=== PATIENT | male | born 1980 | race Caucasian/White ===

== ENCOUNTER 2024-07-24 08:26 | Inpatient (IN) | payer MEDICAID ==
[~2024-07-24] VITALS: Ht 177.8 cm; Wt 89.0 kg
[2024-07-24] VITALS (25 sets, daily range): BP systolic 0–157; BP diastolic 32–136; PULSE 20–139; RESP 20–30; O2SAT 27–99
[~2024-07-24 08:26] MED LIST: rocuronium 10mg/ml inj IV ONE
[2024-07-24] MEDS: etomidate 2mg/ml inj. IV ONE (08:44)
[2024-07-24] MEDS: rocuronium 10mg/ml inj IV ONE ×2 (08:45→16:30)
--- NOTE | 2024-07-24 08:45 | NUR ---
patient intubated with 8fr ET tube @ 23 at the teeth.
[2024-07-24] MEDS: propofol 1000mg/100ml bottle 100 ML IV PRN (09:00)
[2024-07-24] MEDS ORDERED: propofol 10mg/ml 20ml vial IV ONE (09:20)
--- NOTE | 2024-07-24 09:29 | NUR ---
TELEPHONE CALL FROM MOTHER, YOUNG BUCK, FOR CONDITION REPORT. CONTACT NUMBER . NURSE WILL CALL BACK WHEN SHE IS ABLE.
[2024-07-24] MEDS: ringers solution, lactated 1000ml IV soln IV ONE (09:34)
[2024-07-24] MEDS ORDERED: fentaNYL/PF 50MCG/1 ML 2ML syringe IV PRN (09:35)
[2024-07-24] MEDS: piperacillin/tazo 3.375gm/50ml 50 ML IV ONE (09:41)
[2024-07-24] MEDS: normal saline 1000ML IV soln IVB ONE (09:42)
[2024-07-24 09:45] LABS: ABG BASE EXCESS 10.3 mmol/L (-2.0-3.0); ABG HCO3 38.6 mmol/L (21.0-28.0); ABG OXYGEN SATURATION 99.6 % (94.0-98.0); ABG PCO2 (T) 75.1 mmHg (35.0-48.0); ABG PH (T) 7.327 (7.350-7.450); ALLEN'S TEST POSITIVE; FCOHb 0.8 % (0.5-1.5); FHHb 0.4 % (0.0-5.0); FMetHb 0.5 % (0.0-1.5); FO2Hb 98.3 % (94.0-98.0); MODE VENT - AC; PATIENT TEMPERATURE 36.6; RESPIRATORY RATE 20 b/min; TIDAL VOLUME 400 mL; TOTAL HEMOGLOBIN 10.3 G/dl (13.5-17.5)
[2024-07-24 10:17] LABS: BASOPHILS % (AUTO) 0.3 % (0-1); EOSINOPHILS % (AUTO) 0.1 % (0-6); HEMATOCRIT 28.6 % (42.0-52.0); HEMOGLOBIN 9.1 g/dl (14.0-17.9); LYMPHOCYTES # (AUTO) 0.3 X10'3 (1.1-4.8); LYMPHOCYTES % (AUTO) 4.3 % (21-51); MEAN CORPUSCULAR HEMOGLOBIN 29.3 PG (27.0-31.0); MEAN CORPUSCULAR HGB CONC 31.8 g/dL (33.0-36.5); MEAN CORPUSCULAR VOLUME 92.1 FL (78-98); MEAN PLATELET VOLUME 6.9 FL (7.4-10.4); MONOCYTES # (AUTO) 0.6 X10'3 (0-0.9); NEUTROPHILS # (AUTO) 5.7 X10'3 (1.8-7.7); NEUTROPHILS % (AUTO) 86.3 % (42-75); PLATELET COUNT 481 X10'3 (140-440); RED CELL DISTRIBUTION WIDTH 16.2 % (11.5-14.5); WHITE BLOOD COUNT 6.6 X10'3 (4.5-11.0)
[2024-07-24 10:22] LABS: ALBUMIN 1.5 G/DL (3.4-5.0); ANION GAP 6 (8-16); BLOOD UREA NITROGEN 15 MG/DL (7-18); BUN/CREATININE RATIO 16.9 (10.0-20.0); CALCIUM 8.4 MG/DL (8.5-10.1); CHLORIDE 102 MMOL/L (99-107); CREATININE 0.89 MG/DL (0.60-1.10); GLUCOSE 160 MG/DL (70-104); MAGNESIUM 1.6 MG/DL (1.5-2.4); POTASSIUM 3.6 MMOL/L (3.5-5.1); SODIUM 146 MMOL/L (135-145); TOTAL CARBON DIOXIDE 38.4 MMOL/L (24-32); eCRCL 111 ML/MIN; eGFR > 90 ML/MIN
--- NOTE | 2024-07-24 10:27 | NUR ---
Left for Ct at 1015 back in room 4 at 1027
[2024-07-24] MEDS: dexamethasone sod phosphate 10mg/ml inj IV STA (10:51)
[2024-07-24] MEDS: vancomycin/NS 1 GM ADD-VANTAGE 250 ML X 1 DOSE IV ONE (10:51)
[2024-07-24] MEDS: FENTANYL-0.9 % NACL/PF 100 ML IV SCH (10:53)
[2024-07-24] MEDS ORDERED: ondansetron/PF 4mg/2ml inj IV PRN (11:05)
[2024-07-24] MEDS ORDERED: acetaminophen 325mg tablet PO PRN ×2 (11:05)
--- NOTE | 2024-07-24 11:10 | NUR ---
Residents at bedside.
[2024-07-24] MEDS: LidoCAINE 2% Topical Jelly 11mL syringe (UROJET) TOP ONE (11:53)
[2024-07-24 12:01] LABS: BILIRUBIN,URINE NEGATIVE (Neg); CLARITY,URINE CLEAR (Clear); COLOR,URINE YELLOW (Yellow); GLUCOSE, URINE NEGATIVE (Neg); KETONES,URINE NEGATIVE (Neg); LEUKOCYTE ESTERASE ,URINE NEGATIVE (Neg); NITRITES, URINE NEGATIVE (Neg); OCCULT BLOOD,URINE TRACE-INTACT (Neg); PROTEIN,URINE TRACE mg/dl (Neg); UROBILINOGEN,URINE 0.2 E.U/dL (0.2-1.0)
[2024-07-24 12:03] LABS: UA COLLECTION TYPE NON-SPECIFIED
[2024-07-24 12:05] LABS: PRO BRAIN NATRIURETIC PEPTIDE 4797 PG/ML (0-125)
[2024-07-24 12:09] LABS: URINE AMPHETAMINE SCREEN NEGATIVE (Neg); URINE BARBITUATE SCREEN NEGATIVE (Neg); URINE BENZODIAZEPINES SCREEN NEGATIVE (Neg); URINE CANNABINOID SCREEN NEGATIVE (Neg); URINE COCAINE SCREEN NEGATIVE (Neg); URINE METHADONE SCREEN POSITIVE (Neg); URINE OPIATE SCREEN NEGATIVE (Neg); URINE PHENCYCLIDINE SCREEN NEGATIVE (Neg)
[2024-07-24 12:16] LABS: BACTERIA,URINE NONE SEEN /HPF (Neg); SQUAMOUS EPITHELIAL CELL,UR FEW /LPF (FEW); WBC,URINE 0-4 /HPF (0-4)
[2024-07-24 12:17] LABS: AMORPHOUS URATES 1+; HYALINE CASTS 0-3 /LPF (NEGATIVE)
[2024-07-24 12:21] LABS: APTT 27 SECONDS (22-32); INR 1.3 INR
[2024-07-24] MEDS: LIDOcaine 4% (40 mg/ml) topical solution 50ml MM ONE (12:55)
[2024-07-24] MEDS: dextrose 5%-1/2 normal saline 1,000 ML IV SCH (13:00)
--- NOTE | 2024-07-24 13:00 | NUR ---
Patient in room CICU 2011. I have received report from ER and had the opportunity to ask questions and assume patient care. PT TO ROOM BY MARILYN
[2024-07-24] MEDS ORDERED: epiNEPHrine 1 MG/ML 1 ml ampule **BRONCH ONLY ONE (13:03)
[2024-07-24] MEDS ORDERED: LIDOCAINE 4% (40MG/ML) topical solution 50ml **BRONCH ONLY ONE (13:04)
--- NOTE | 2024-07-24 13:15 | NUR ---
INCREASED BLDY SXS VIA ETT- rT HERE. DR MEYER NOTIFIED. ROGELIOVAN AT MAX DOSE. INCREASING FENTANYL PER PROTOCOL BY 15 MCG. O ALLOW ADEQUATE VENTILATION
[2024-07-24] MEDS: epiNEPHrine 1 mg/ml inj ONE (13:35)
[2024-07-24] MEDS: racepinephrine 11.25mg/0.5ml nebule IH PRN (13:36)
[2024-07-24] MEDS: epiNEPHrine 1 mg/ml inj IR PRN (13:36)
[2024-07-24] MEDS ORDERED: METH-806 PO (13:49)
[2024-07-24] MEDS ORDERED: METH40VI32 IJ (13:49)
[2024-07-24] MEDS ORDERED: LOP12.5T PO (13:49)
[2024-07-24] MEDS ORDERED: PANT40VI2 IV (13:49)
[2024-07-24] MEDS ORDERED: GABA300C PO (13:49)
--- NOTE | 2024-07-24 14:00 | NUR ---
DR MEYER NOTIFIED OF INCREASED BLDY ETT SX- RT HERE TO ASSIST WITH BRONCH AND EPI INJECTION TO CONTROL BLEEDING. FENT TO 200MCG PER MD ORDER. ECHO AND VASCULAR STUDY DONE LE
[2024-07-24] MEDS: MEROPENEM 1GM/NS 100ML IVPB 100 ML IV SCH (14:06)
[2024-07-24] MEDS ORDERED: ipratropium/albuterol 3ml nebule NEB PRN (14:20)
[2024-07-24] MEDS ORDERED: atropine 0.1mg/ml 10ml syringe ONE (15:00)
--- NOTE | 2024-07-24 15:00 | NUR ---
PT ON 80% NOW- REQUIRING BAGGING BY RT. AWARE- CARDIOVASCULAR SURGEON HERE- CALL BY PA TO DOMI TO SURGEON WHO DID ORIGINAL SURGERY- DECISION TO NOT PLACE CT AT PRESENT- AWAITING ANESTH
[2024-07-24 15:28] LABS: ALANINE AMINOTRANSFERASE 27 U/L (12-78); ALBUMIN 1.3 G/DL (3.4-5.0); ALBUMIN/GLOBULIN RATIO 0.2 (1.1-1.5); ALKALINE PHOSPHATASE 87 IU/L (46-116); ASPARTATE AMINO TRANSFERASE 34 U/L (10-37); BILIRUBIN,DIRECT 0.2 MG/DL (0-0.3); BILIRUBIN,TOTAL 0.7 MG/DL (0.1-1.0); TOTAL PROTEIN 6.6 G/DL (6.4-8.2)
[2024-07-24] MEDS ORDERED: piperacillin/tazo 3.375gm/50ml 50 ML IV SCH (16:00)
[2024-07-24] MEDS: methylPREDNISolone sod succ 125mg/2ml vial IV SCH (16:01)
[2024-07-24] MEDS: pantoprazole 40 MG vial IV SCH (16:02)
[2024-07-24 16:09] LABS: ABG BASE EXCESS 5.8 mmol/L (-2.0-3.0); ABG HCO3 36.5 mmol/L (21.0-28.0); ABG OXYGEN SATURATION 86.3 % (94.0-98.0); ABG PCO2 (T) 99.6 mmHg (35.0-48.0); ABG PH (T) 7.182 (7.350-7.450); ABG PO2 (T) 56.6 mmHg (83.0-108.0); ALLEN'S TEST POSITIVE; FCOHb 0.7 % (0.5-1.5); FHHb 13.6 % (0.0-5.0); FMetHb 0.3 % (0.0-1.5); FO2Hb 85.4 % (94.0-98.0); MODE VENT - P/C; PEEP 12 cm H2O; RESPIRATORY RATE 20 b/min; TIDAL VOLUME 280 mL; TOTAL HEMOGLOBIN 10.3 G/dl (13.5-17.5)
[2024-07-24] MEDS: CISatracurium besylate inj. 100 MG in normal saline 100ml IV soln 90 ML IV PRN (16:18)
--- NOTE | 2024-07-24 16:45 | NUR ---
NIMBEX GTT START- ANESTH HERE- TANESHA BOLUS GIVEN. REINTUBATED WITH DOUBLE ETT WITH TUBE EXCHANGER- NOT IN PLACE- REMOVED REPLACED, BUT HR T- 20'S, SATS TO 27. CODE CALEED- CPR IN PROCESS.
[2024-07-24] MEDS ORDERED: epiNEPHrine 5 MG in NS 250ml IV.SOLN IV SCH (17:05)
[2024-07-24] MEDS: COMMUNICATION ORDER 1 EA MISC MC ONE ×2 (17:15→18:43)
--- NOTE | 2024-07-24 17:15 | NUR ---
AFTER CPR, WITH ASTOLE, VTACH- 2 SHOCKS, PEA AND 4 EPI, 1 ATROPINE-ROSC WITH SAT 81 TO 91, HR 160'S TO 110, SBP 140'S TO 50'S. LEVO STARTED.CL AND AL PLACED PER MD CXR AND ABG NOTED BYMD, ANESTH CALLED.
[2024-07-24] MEDS: NORepinephrine 8mg/ 250ml NS 250 ML IV ONE (17:45)
[2024-07-24 17:48] LABS: ABG BASE EXCESS 3.5 mmol/L (-2.0-3.0); ABG HCO3 36.5 mmol/L (21.0-28.0); ABG OXYGEN SATURATION 87.9 % (94.0-98.0); ABG PCO2 (T) 136.7 mmHg (35.0-48.0); ABG PO2 (T) 67.8 mmHg (83.0-108.0); FCOHb 0.8 % (0.5-1.5); FMetHb 0.3 % (0.0-1.5); FO2Hb 86.9 % (94.0-98.0); MODE VENT - P/C; PATIENT TEMPERATURE 37.8; PEEP 8 cm H2O; RESPIRATORY RATE 30 b/min; TIDAL VOLUME 215 mL; TOTAL HEMOGLOBIN 10.3 G/dl (13.5-17.5)
--- NOTE | 2024-07-24 18:39 | NUR ---
Patient in room CICU 2011. I have received report from Camilla ORNELAS and had the opportunity to ask questions and assume patient care.
--- NOTE | 2024-07-24 19:26 | NUR ---
Dr Paulino at bedside, verified left ET tube placement switched the vent connection with RT from double port to the left ET tube Right ET tube clamped attached to adapter . Per MD-able to use kory in circuit suction to carefully suction secretions, avoid deep suctioning.
[2024-07-24] MEDS: vasopressin inj. 40 UNIT in normal saline 50ml IV soln 38 ML IV SCH (19:30)
[2024-07-24] MEDS: NORepinephrine 8mg/ 250ml NS 250 ML IV SCH (19:33)
[2024-07-24 21:18] LABS: ABG BASE EXCESS 3.2 mmol/L (-2.0-3.0); ABG HCO3 30.2 mmol/L (21.0-28.0); ABG OXYGEN SATURATION 94.3 % (94.0-98.0); ABG PCO2 (T) 61.2 mmHg (35.0-48.0); ABG PH (T) 7.316 (7.350-7.450); ABG PO2 (T) 72.5 mmHg (83.0-108.0); FCOHb 0.8 % (0.5-1.5); FHHb 5.6 % (0.0-5.0); FMetHb 0.3 % (0.0-1.5); FO2Hb 93.3 % (94.0-98.0); MODE VENT - P/C; PEEP 10 cm H2O; RESPIRATORY RATE 30 b/min; TOTAL HEMOGLOBIN 10.8 G/dl (13.5-17.5)
[2024-07-24] MEDS: vancomycin/NS 1 GM ADD-VANTAGE 250 ML IV SCH (21:36)
[2024-07-24 21:38] LABS: ALANINE AMINOTRANSFERASE 315 U/L (12-78); ALBUMIN 1.3 G/DL (3.4-5.0); ALBUMIN/GLOBULIN RATIO 0.3 (1.1-1.5); ALKALINE PHOSPHATASE 90 IU/L (46-116); ANION GAP 12 (8-16); ASPARTATE AMINO TRANSFERASE 835 U/L (10-37); BLOOD UREA NITROGEN 17 MG/DL (7-18); BUN/CREATININE RATIO 13.5 (10.0-20.0); CALCIUM 8.3 MG/DL (8.5-10.1); CHLORIDE 101 MMOL/L (99-107); CREATININE 1.26 MG/DL (0.60-1.10); GLUCOSE 153 MG/DL (70-104); SODIUM 145 MMOL/L (135-145); TOTAL CARBON DIOXIDE 31.6 MMOL/L (24-32); TOTAL PROTEIN 6.5 G/DL (6.4-8.2); eCRCL 78 ML/MIN; eGFR 62 ML/MIN
[2024-07-24 21:41] LABS: MAGNESIUM 1.6 MG/DL (1.5-2.4); PHOSPHORUS 4.9 MG/DL (2.3-4.5)
[2024-07-24 22:14] LABS: MONOCYTES # (AUTO) 0.2 X10'3 (0-0.9)
[2024-07-24 22:16] LABS: BASOPHILS % (AUTO) 0.2 % (0-1); EOSINOPHILS % (AUTO) 0 % (0-6); HEMATOCRIT 30.4 % (42.0-52.0); HEMOGLOBIN 9.7 g/dl (14.0-17.9); LYMPHOCYTES # (AUTO) 0.4 X10'3 (1.1-4.8); LYMPHOCYTES % (AUTO) 8.5 % (21-51); MEAN CORPUSCULAR HEMOGLOBIN 29.4 PG (27.0-31.0); MEAN CORPUSCULAR HGB CONC 31.9 g/dL (33.0-36.5); MEAN CORPUSCULAR VOLUME 92.1 FL (78-98); MEAN PLATELET VOLUME 7.2 FL (7.4-10.4); MONOCYTES % (AUTO) 4.2 % (2-12); NEUTROPHILS # (AUTO) 4.3 X10'3 (1.8-7.7); NEUTROPHILS % (AUTO) 87.1 % (42-75); RED BLOOD COUNT 3.31 X10'6 (4.70-6.10); RED CELL DISTRIBUTION WIDTH 16.4 % (11.5-14.5); WHITE BLOOD COUNT 4.9 X10'3 (4.5-11.0)
[2024-07-24 23:09] LABS: PLATELET COUNT 557 X10'3 (140-440)
--- NOTE | 2024-07-24 23:42 | NUR ---
Cardiac rhythm change noted, HR changed from sinus tach to sinus rhythm with bigem PVCs in the 60s-80s. Dr. Mahoney notifed. Orders received. Heart rate back up to sinus tach with no ectopy.
[2024-07-25] VITALS (52 sets, daily range): BP systolic 71–123; BP diastolic 30–74; PULSE 93–210; RESP 0–31; TEMP 99.3–99.4; O2SAT 79–99
[2024-07-25] MEDS: sodium bicarbonate (8.4%) 1 mEq/ml syringe IV ONE ×2 (00:01→18:00)
[2024-07-25] MEDS: magnesium sulf-water 2g/50mL 50 ML IV ONE ×2 (00:01→21:47)
[2024-07-25] MEDS: normal saline 1000ml 1,000 ML IV SCH ×2 (00:04→14:50)
[2024-07-25] MEDS: CALCIUM GLUC 1gm/50ml NACL,iso 50 ML IV ONE (00:05)
[2024-07-25 00:08] LABS: ANION GAP 14 (8-16); BLOOD UREA NITROGEN 19 MG/DL (7-18); BUN/CREATININE RATIO 12.8 (10.0-20.0); CALCIUM 8.3 MG/DL (8.5-10.1); CHLORIDE 103 MMOL/L (99-107); CREATININE 1.49 MG/DL (0.60-1.10); GLUCOSE 144 MG/DL (70-104); MAGNESIUM 1.6 MG/DL (1.5-2.4); PHOSPHORUS 4.9 MG/DL (2.3-4.5); POTASSIUM 4.4 MMOL/L (3.5-5.1); SODIUM 145 MMOL/L (135-145); TOTAL CARBON DIOXIDE 27.9 MMOL/L (24-32); eCRCL 66 ML/MIN; eGFR 51 ML/MIN
[2024-07-25 00:09] LABS: ALBUMIN 1.2 G/DL (3.4-5.0)
[2024-07-25] MEDS: calcium chloride 100 MG/1 ML inj IV ONE ×2 (00:27→18:00)
[2024-07-25] MEDS: calcium chloride inj. 1,000 MG in normal saline 100ml IV soln 100 ML IV ONE (00:28)
[2024-07-25] MEDS ORDERED: NORepinephrine 8mg/ 250ml NS 250 ML IV SCH (01:05)
[2024-07-25 02:28] LABS: ANISOCYTOSIS 1+; NUCLEATED RED BLOOD CELLS 4 /100WBC (0-0); PLATELET ESTIMATE INCREASED; TOTAL CELLS COUNTED 100
[2024-07-25 02:29] LABS: LARGE PLATELETS FEW; POLYCHROMASIA 1+; STOMATOCYTES 2+
[2024-07-25 02:55] LABS: ABG BASE EXCESS 0.5 mmol/L (-2.0-3.0); ABG OXYGEN SATURATION 98.1 % (94.0-98.0); ABG PCO2 (T) 54.6 mmHg (35.0-48.0); ABG PH (T) 7.317 (7.350-7.450); FCOHb 0.5 % (0.5-1.5); FHHb 1.9 % (0.0-5.0); FMetHb 0.3 % (0.0-1.5); FO2Hb 97.3 % (94.0-98.0); MODE VENT - P/C; PATIENT TEMPERATURE 37.8; PEEP 8 cm H2O; RESPIRATORY RATE 30 b/min; TOTAL HEMOGLOBIN 10.8 G/dl (13.5-17.5)
[2024-07-25] MEDS: NORepinephrine 32 MG in normal saline 250ml IV soln 218 ML IV SCH (03:36)
[2024-07-25] MEDS: fentaNYL 50mcg/ml PF inj. 2,500 MCG in normal saline 250ml IV soln 200 ML IV SCH (03:54)
[2024-07-25 04:41] LABS: ANION GAP 14 (8-16); BASOPHILS # (AUTO) 0.2 X10'3 (0-0.2); BASOPHILS % (AUTO) 1.7 % (0-1); BLOOD UREA NITROGEN 22 MG/DL (7-18); BUN/CREATININE RATIO 12.4 (10.0-20.0); CALCIUM 9.1 MG/DL (8.5-10.1); CHLORIDE 104 MMOL/L (99-107); CREATININE 1.77 MG/DL (0.60-1.10); EOSINOPHILS % (AUTO) 0.1 % (0-6); GLUCOSE 125 MG/DL (70-104); HEMATOCRIT 31.4 % (42.0-52.0); HEMOGLOBIN 9.8 g/dl (14.0-17.9); LYMPHOCYTES # (AUTO) 0.5 X10'3 (1.1-4.8); LYMPHOCYTES % (AUTO) 4.8 % (21-51); MAGNESIUM 2.2 MG/DL (1.5-2.4); MEAN CORPUSCULAR HGB CONC 31.3 g/dL (33.0-36.5); MEAN CORPUSCULAR VOLUME 92.7 FL (78-98); MEAN PLATELET VOLUME 7.7 FL (7.4-10.4); MONOCYTES # (AUTO) 0.5 X10'3 (0-0.9); MONOCYTES % (AUTO) 4.3 % (2-12); NEUTROPHILS # (AUTO) 10.1 X10'3 (1.8-7.7); NEUTROPHILS % (AUTO) 89.1 % (42-75); PHOSPHORUS 4.9 MG/DL (2.3-4.5); POTASSIUM 3.8 MMOL/L (3.5-5.1); RED BLOOD COUNT 3.39 X10'6 (4.70-6.10); RED CELL DISTRIBUTION WIDTH 16.6 % (11.5-14.5); SODIUM 146 MMOL/L (135-145); TOTAL CARBON DIOXIDE 28.2 MMOL/L (24-32); TRIGLYCERIDES 160 MG/DL (20-135); WHITE BLOOD COUNT 11.3 X10'3 (4.5-11.0); eCRCL 56 ML/MIN; eGFR 42 ML/MIN
[2024-07-25 04:52] LABS: ALANINE AMINOTRANSFERASE 1756 U/L (12-78); ALBUMIN 1.3 G/DL (3.4-5.0); ALBUMIN/GLOBULIN RATIO 0.3 (1.1-1.5); ALKALINE PHOSPHATASE 95 IU/L (46-116); BILIRUBIN,TOTAL 1.3 MG/DL (0.1-1.0); TOTAL PROTEIN 6.4 G/DL (6.4-8.2)
[2024-07-25 06:24] LABS: NUCLEATED RED BLOOD CELLS 6 /100WBC (0-0); TOTAL CELLS COUNTED 100
[2024-07-25 06:25] LABS: ANISOCYTOSIS 1+
[2024-07-25 06:27] LABS: LARGE PLATELETS FEW
[2024-07-25 06:29] LABS: POLYCHROMASIA 1+
--- NOTE | 2024-07-25 06:30 | NUR ---
Patient in room CICU 2012. I have received report from erika and had the opportunity to ask questions and assume patient care.
--- NOTE | 2024-07-25 06:31 | NUR ---
Problems reprioritized. Patient report given, questions answered & plan of care reviewed with Camilla ORNELAS.
[2024-07-25 07:11] LABS: ASPARTATE AMINO TRANSFERASE 5663 U/L (10-37)
--- NOTE | 2024-07-25 07:30 | NUR ---
update to dr david- ivf to 100cc/hr. pt remains paralyzed and sedated , on levo- quad strength and vasopressin- updat to mom by phone
[2024-07-25] MEDS: enoxaparin 40mg/0.4ml syringe SUBCUT SCH (08:00)
[2024-07-25 08:41] LABS: EOSINOPHILS % (AUTO) 0 % (0-6); HEMATOCRIT 31.6 % (42.0-52.0)
[2024-07-25 09:00] LABS: BASOPHILS % (AUTO) 0.2 % (0-1); HEMOGLOBIN 9.7 g/dl (14.0-17.9); LYMPHOCYTES # (AUTO) 1.3 X10'3 (1.1-4.8); MEAN CORPUSCULAR HEMOGLOBIN 28.6 PG (27.0-31.0); MEAN CORPUSCULAR HGB CONC 30.7 g/dL (33.0-36.5); MEAN CORPUSCULAR VOLUME 93.1 FL (78-98); MEAN PLATELET VOLUME 7.6 FL (7.4-10.4); MONOCYTES # (AUTO) 0.6 X10'3 (0-0.9); MONOCYTES % (AUTO) 3.1 % (2-12); NEUTROPHILS # (AUTO) 18.8 X10'3 (1.8-7.7); NEUTROPHILS % (AUTO) 90.7 % (42-75); PLATELET COUNT 642 X10'3 (140-440); RED CELL DISTRIBUTION WIDTH 17.4 % (11.5-14.5); WHITE BLOOD COUNT 20.8 X10'3 (4.5-11.0)
[2024-07-25 09:07] LABS: ANISOCYTOSIS 1+; NUCLEATED RED BLOOD CELLS 10 /100WBC (0-0); PLATELET ESTIMATE INCREASED; TOTAL CELLS COUNTED 100
[2024-07-25 09:08] LABS: POLYCHROMASIA 1+; TOXIC GRANULATION 1+
--- NOTE | 2024-07-25 11:00 | NUR ---
dr cerda her- #36 ct placed rt ches- large airleak-mod red/brown drainagesats and volumes unchanged, but continuous circuit leak- RT here
[2024-07-25] MEDS: VANCOMYCIN LEVEL IV ONE (11:30)
--- NOTE | 2024-07-25 12:00 | NUR ---
order to not move pt in anticipation of double ett movement
--- NOTE | 2024-07-25 12:32 | NUR ---
Initial: Pt admit for acute hypercapnic respiratory failure with right large hydro pneumothorax seen on CT of chest and open wound s/p debridement of necrotizing fasciitis to right arm per EMR. Wound care has been consulted, assessment pending at this time. Per EMR pt intubated on admit and s/p code blue once ETT was removed for exchange. Pt remains intubated at this time with Propofol visualized at bedside to be running at 25.8 mL/hr providing 681 kcal/day. Right NGT in place for LIS, documented with 250 mL output per I&O. No TF consult at this time though TF recommendations below for if expected prolonged intubation and to receive nutrition support. LBM 07/25 per EMR. Will continue to follow closely and make recommendations as appropriate. Recommendations: 1) IF TF and Propofol at 25.8 mL/hr (681 kcal/day), continuous Vital AF with 65 mL/hr goal rate. Begin at 25 mL/hr and advance by 20 mL Q8H as tolerated to goal rate 2) Monitor Propofol rate and adjust recs as appropriate; IF Propofol discontinued, continuous Vital AF with 80 mL/hr goal rate. Begin at 20 mL/hr and advance by 20 mL Q8H as tolerated to goal rate 3) IF TF, additional 180 mL water flush Q6H; monitor serum Na 4) IF TF and water flushes, Stephan ONS BID to promote wound healing. To administer mix one Stephan packet with 120 mL room temperature water and flush NGT with 30 mL water before and after administration of Stephan 5) IF TF, prealbumin q Saturday/ 6) Daily scaled weights Addendum: 07/25/24 at [address] Amended: Links added.
--- NOTE | 2024-07-25 14:00 | NUR ---
dr finney- anesth called and here- moved ett from 29 to 31. now no air leak ,sudden gush of red clotted blood around chest tube, dr david called and here. yong apllied- then stopped- new yong applied
[2024-07-25 15:46] LABS: ALBUMIN 1.1 G/DL (3.4-5.0); ALBUMIN/GLOBULIN RATIO 0.2 (1.1-1.5); ALKALINE PHOSPHATASE 133 IU/L (46-116); ANION GAP 16 (8-16); BILIRUBIN,TOTAL 1.4 MG/DL (0.1-1.0); BLOOD UREA NITROGEN 29 MG/DL (7-18); BUN/CREATININE RATIO 12.8 (10.0-20.0); CHLORIDE 104 MMOL/L (99-107); CREATININE 2.27 MG/DL (0.60-1.10); GLUCOSE 131 MG/DL (70-104); SODIUM 146 MMOL/L (135-145); TOTAL CARBON DIOXIDE 26.2 MMOL/L (24-32); TOTAL PROTEIN 5.8 G/DL (6.4-8.2); eCRCL 43 ML/MIN; eGFR 32 ML/MIN
[2024-07-25 15:56] LABS: ALANINE AMINOTRANSFERASE 2668 U/L (12-78); PHOSPHORUS 6.3 MG/DL (2.3-4.5); POTASSIUM 4.9 MMOL/L (3.5-5.1)
[2024-07-25 15:57] LABS: ASPARTATE AMINO TRANSFERASE > 7000 U/L (10-37)
--- NOTE | 2024-07-25 16:00 | NUR ---
pt more tachy with decreased bp-md aware- bolus of 1 liter lr infud\sed
[2024-07-25 16:01] LABS: ABG BASE EXCESS -7.1 mmol/L (-2.0-3.0); ABG HCO3 21.4 mmol/L (21.0-28.0); ABG OXYGEN SATURATION 88.7 % (94.0-98.0); ABG PCO2 (T) 62.4 mmHg (35.0-48.0); ABG PH (T) 7.159 (7.350-7.450); ABG PO2 (T) 76.1 mmHg (83.0-108.0); FCOHb 0.2 % (0.5-1.5); FHHb 11.3 % (0.0-5.0); FO2Hb 88.5 % (94.0-98.0); MODE VENT - P/C; PATIENT TEMPERATURE 38.1; PEEP 8 cm H2O; RESPIRATORY RATE 30 b/min; TIDAL VOLUME 240 mL; TOTAL HEMOGLOBIN 9.7 G/dl (13.5-17.5)
[2024-07-25] MEDS: ringers solution, lacted 1,000 ML IV ONE ×2 (16:06→17:40)
--- NOTE | 2024-07-25 16:45 | NUR ---
cxr done post ct ad ett adabcws
--- NOTE | 2024-07-25 17:00 | NUR ---
sbp tending down- levo up- hr more tachy. dr david by- lr bolus given. no change in bp- dr david called- stat hgb ordered. bicarb and ca cl given- brief increase in bp, then down. dr david called again re drop in hgb- blood ordered.
[2024-07-25] MEDS: sodium bicarbonate (8.4%) 1 mEq/ml syringe ONE (17:41)
[2024-07-25 17:44] LABS: HEMOGLOBIN 7.9 g/dl (14.0-17.9); MEAN PLATELET VOLUME 8.1 FL (7.4-10.4)
[2024-07-25 17:46] LABS: BASOPHILS % (AUTO) 0.1 % (0-1); EOSINOPHILS # (AUTO) 0.2 X10'3 (0-0.9); EOSINOPHILS % (AUTO) 0.7 % (0-6); HEMATOCRIT 26.6 % (42.0-52.0); LYMPHOCYTES # (AUTO) 1.2 X10'3 (1.1-4.8); LYMPHOCYTES % (AUTO) 3.8 % (21-51); MEAN CORPUSCULAR HEMOGLOBIN 28.5 PG (27.0-31.0); MEAN CORPUSCULAR HGB CONC 29.7 g/dL (33.0-36.5); MONOCYTES # (AUTO) 0.9 X10'3 (0-0.9); MONOCYTES % (AUTO) 2.7 % (2-12); NEUTROPHILS # (AUTO) 29.3 X10'3 (1.8-7.7); NEUTROPHILS % (AUTO) 92.7 % (42-75); PLATELET COUNT 559 X10'3 (140-440); RED BLOOD COUNT 2.77 X10'6 (4.70-6.10); RED CELL DISTRIBUTION WIDTH 17.4 % (11.5-14.5)
[2024-07-25 17:49] LABS: WHITE BLOOD COUNT 31.7 X10'3 (4.5-11.0)
--- NOTE | 2024-07-25 18:00 | NUR ---
hr to 200's with decrease bp- dr david called- amio bolus and gtt hung- after bolus hr down to 130's. sbp slightly improved on 1 mcg,
[2024-07-25] MEDS: albumin (Human) 5% 250ml 250 ML IV ONE ×2 (18:22→21:47)
[2024-07-25] MEDS ORDERED: amiodarone/D5 360MG/200ML BAG 200 ML IV SCH (18:25)
[2024-07-25 18:48] LABS: ALBUMIN 0.9 G/DL (3.4-5.0); ALBUMIN/GLOBULIN RATIO 0.2 (1.1-1.5); ALKALINE PHOSPHATASE 138 IU/L (46-116); ANION GAP 15 (8-16); BILIRUBIN,TOTAL 1.3 MG/DL (0.1-1.0); BLOOD UREA NITROGEN 30 MG/DL (7-18); BUN/CREATININE RATIO 12.1 (10.0-20.0); CHLORIDE 107 MMOL/L (99-107); CREATININE 2.47 MG/DL (0.60-1.10); GLUCOSE 127 MG/DL (70-104); SODIUM 145 MMOL/L (135-145); TOTAL CARBON DIOXIDE 22.7 MMOL/L (24-32); TOTAL PROTEIN 4.8 G/DL (6.4-8.2); eCRCL 40 ML/MIN; eGFR 29 ML/MIN
[2024-07-25] MEDS: amiodarone 150mg/dext, iso-os 100 ML IV ONE ×2 (18:57→19:09)
[2024-07-25 19:04] LABS: ALANINE AMINOTRANSFERASE 2249 U/L (12-78); POTASSIUM 5.1 MMOL/L (3.5-5.1)
[2024-07-25] MEDS: amiodarone/D5 360MG/200ML BAG 200 ML IV SCH (19:04)
[2024-07-25 19:10] LABS: ASPARTATE AMINO TRANSFERASE > 7000 U/L (10-37)
[2024-07-25 19:27] LABS: MAGNESIUM 1.9 MG/DL (1.5-2.4)
--- NOTE | 2024-07-25 20:09 | NUR ---
LRPCs infusing, hypotensive, map 57-60 on max dose Levophed and Vasopressin. HR 130s-140s. Dr. Phelps updated on patient's current hemodynamics and output. MD reviewing chart, no new orders at this time.
--- NOTE | 2024-07-25 20:17 | NUR ---
Patient's mother Camilla updated on patient's condition.
--- NOTE | 2024-07-25 21:36 | NUR ---
Dr. Phelps updated on current vent settings, hemodynamics, lab values and medications. RT at bedside. Orders received. Ventilator pressure control setting to 22.
[2024-07-25] MEDS: PHENYLephrine 10mg/ml inj. 50 MG in normal saline 250ml IV soln 245 ML IV PRN (22:38)
[2024-07-26] VITALS (15 sets, daily range): BP systolic 24–92; BP diastolic 15–61; PULSE 0–95; RESP 30–31; O2SAT 88–94
[2024-07-26 00:06] LABS: ABG BASE EXCESS -14.7 mmol/L (-2.0-3.0); ABG HCO3 16.6 mmol/L (21.0-28.0); ABG OXYGEN SATURATION 92.7 % (94.0-98.0); ABG PH (T) 7.008 (7.350-7.450); FCOHb 0.2 % (0.5-1.5); FHHb 7.3 % (0.0-5.0); FMetHb 0.3 % (0.0-1.5); FO2Hb 92.2 % (94.0-98.0); MODE VENT - P/C; PATIENT TEMPERATURE 37.2; PEEP 10 cm H2O; RESPIRATORY RATE 30 b/min; TOTAL HEMOGLOBIN 11.1 G/dl (13.5-17.5)
[2024-07-26 00:24] LABS: BASOPHILS # (AUTO) 0.1 X10'3 (0-0.2); BASOPHILS % (AUTO) 0.3 % (0-1); MEAN PLATELET VOLUME 8.1 FL (7.4-10.4); RED CELL DISTRIBUTION WIDTH 16.6 % (11.5-14.5)
[2024-07-26 00:26] LABS: EOSINOPHILS % (AUTO) 0.1 % (0-6); HEMATOCRIT 32.9 % (42.0-52.0); LYMPHOCYTES # (AUTO) 2.2 X10'3 (1.1-4.8); LYMPHOCYTES % (AUTO) 6.8 % (21-51); MEAN CORPUSCULAR HEMOGLOBIN 29.2 PG (27.0-31.0); MEAN CORPUSCULAR HGB CONC 30.3 g/dL (33.0-36.5); MEAN CORPUSCULAR VOLUME 96.3 FL (78-98); MONOCYTES # (AUTO) 1.3 X10'3 (0-0.9); MONOCYTES % (AUTO) 3.9 % (2-12); NEUTROPHILS # (AUTO) 28.6 X10'3 (1.8-7.7); NEUTROPHILS % (AUTO) 88.9 % (42-75); PLATELET COUNT 427 X10'3 (140-440); RED BLOOD COUNT 3.41 X10'6 (4.70-6.10)
[2024-07-26 00:31] LABS: WHITE BLOOD COUNT 32.1 X10'3 (4.5-11.0)
[2024-07-26 00:38] LABS: ALBUMIN 1.3 G/DL (3.4-5.0); ALBUMIN/GLOBULIN RATIO 0.3 (1.1-1.5); ALKALINE PHOSPHATASE 211 IU/L (46-116); ANION GAP 20 (8-16); APTT 30 SECONDS (22-32); BILIRUBIN,TOTAL 2.4 MG/DL (0.1-1.0); BLOOD UREA NITROGEN 32 MG/DL (7-18); BUN/CREATININE RATIO 11.6 (10.0-20.0); CALCIUM 7.7 MG/DL (8.5-10.1); CHLORIDE 105 MMOL/L (99-107); CREATININE 2.76 MG/DL (0.60-1.10); GLUCOSE 144 MG/DL (70-104); INR 2.2 INR; MAGNESIUM 2.2 MG/DL (1.5-2.4); PHOSPHORUS 8.8 MG/DL (2.3-4.5); PROTHROMBIN TIME 22.2 SECONDS (9.0-12.0); SODIUM 144 MMOL/L (135-145); TOTAL PROTEIN 5.2 G/DL (6.4-8.2); eCRCL 36 ML/MIN; eGFR 25 ML/MIN
[2024-07-26 01:03] LABS: TOTAL CELLS COUNTED 100
[2024-07-26 01:04] LABS: BANDS% (MANUAL) 65 % (0-10); LYMPHOCYTES % (MANUAL) 10 % (21-51); METAMYLEOCYTES% (MANUAL) 2 % (0-0); MONOCYTES % (MANUAL) 2 % (2-12); MYELOCYTES % (MANUAL) 2 % (0-0)
[2024-07-26 01:08] LABS: NEUTROPHILS % (MANUAL) 19 % (42-75)
[2024-07-26 01:09] LABS: SMUDGE CELLS 1+
[2024-07-26 01:10] LABS: LARGE PLATELETS FEW; NUCLEATED RED BLOOD CELLS 21 /100WBC (0-0); PLATELET ESTIMATE NORMAL
[2024-07-26 01:11] LABS: ANISOCYTOSIS 1+; TEAR DROP CELLS 1+
[2024-07-26 01:14] LABS: POLYCHROMASIA 1+
[2024-07-26 01:20] LABS: ALANINE AMINOTRANSFERASE 2520 U/L (12-78); POTASSIUM 5.6 MMOL/L (3.5-5.1)
[2024-07-26 01:21] LABS: ASPARTATE AMINO TRANSFERASE > 7000 U/L (10-37)
[2024-07-26] MEDS: sodium bicarbonate 1meq/ml inj 150 ML in dextrose 5%-water 1,000 ML IV SCH (01:35)
[2024-07-26] MEDS: sodium bicarbonate (8.4%) 1 mEq/ml syringe IV ONE (01:55)
--- NOTE | 2024-07-26 02:22 | NUR ---
Patient's family at bedside. Dr. Phelps spoke with them and updated them of current condition. No changes to plan of care at this time. Bicarb drip running. All pressors on max dose.
--- NOTE | 2024-07-26 03:08 | NUR ---
Dr. Phelps spoke with patient's family,they wish to change patient's code status to DNR to comfort care. Order placed by .
--- NOTE | 2024-07-26 03:55 | NUR ---
RN IS TO DOCUMENT YES TO ALL APPLICABLE AREAS Pronouncement of :354 1. Time Physician Notified:[id number] 2. Date of :07/26/2024 3. Time of : 354 4. DNR/Withdraw life support documented:Y 5. Monitor strip has been placed on chart:Y 6. Assessment process is of one-minute duration and includes following criteria: a) Patient is unresponsive to all stimuli: Y b) Pupils fixed and non-reactive:Y c) Auscultation of precordium reveals absence of heart tones:Y d) Auscultation of lungs reveals absence of breath sounds:Y e) Absence of blood pressure / all vital signs:Y f) QRS complexes are not present on monitor / EKG strip:Y g) Pacer spikes without capture:N/A 4. Comments:
[2024-07-26] MEDS ORDERED: VANCOMYCIN LEVEL IV ONE (12:00)
== END 2024-07-26 09:37 | DRG 720 ==
LOC: ER 08:27 → ED HOLD 11:15 → CICU 2S 12:44
PROVIDERS: ADMIT Internal Medicine Critical Care Medicine; ATTEND Internal Medicine Critical Care Medicine
PROC: 5A1945Z Respiratory Ventilation, 24-96 Consecutive Hours (ICD-10-PCS; 2024-07-24)
PROC: 0BH17EZ Insertion of Endotracheal Airway into Trachea, Via Natural or Artificial Opening (ICD-10-PCS; 2024-07-24)
PROC: 0BJ08ZZ Inspection of Tracheobronchial Tree, Via Natural or Artificial Opening Endoscopic (ICD-10-PCS; 2024-07-24)
PROC: 0W9930Z Drainage of Right Pleural Cavity with Drainage Device, Percutaneous Approach (ICD-10-PCS; principal; 2024-07-25)
PROC: 02HV33Z Insertion of Infusion Device into Superior Vena Cava, Percutaneous Approach (ICD-10-PCS; 2024-07-25)
PROC: 03HY32Z Insertion of Monitoring Device into Upper Artery, Percutaneous Approach (ICD-10-PCS; 2024-07-25)
PROC: 30233N1 Transfusion of Nonautologous Red Blood Cells into Peripheral Vein, Percutaneous Approach (ICD-10-PCS; 2024-07-25)
DX: A41.9 Sepsis, unspecified organism (principal); J80 Acute respiratory distress syndrome; R65.21 Severe sepsis with septic shock; J85.0 Gangrene and necrosis of lung; M72.6 Necrotizing fasciitis; J18.9 Pneumonia, unspecified organism; E87.1 Hypo-osmolality and hyponatremia; J93.9 Pneumothorax, unspecified; I46.9 Cardiac arrest, cause unspecified; Z20.822 Contact with and (suspected) exposure to COVID-19; R04.2 Hemoptysis; B19.20 Unspecified viral hepatitis C without hepatic coma; J98.4 Other disorders of lung; Z51.5 Encounter for palliative care; Z90.2 Acquired absence of lung [part of]
CPT/HCPCS: 31645; 36415; 36430; 36600; 71045; 71250; 80048; 80053; 80076; 80202; 80305; 81001; 82803; 82948; 83605; 83735; 83880; 84100; 84145; 84478; 84484; 85007; 85018; 85025; 85610; 85730; 86885; 86900; 86901; 86920; 87040; 87077; 87081; 87186; 87811; 93005; 93306; 93970; 94002; 94003; 94640; 94660; 94760; 94799; 96374; 96375; 96376; 99291; A4628; A6196; A6212; A6258; A6449; A7015; C1751; C1758; G0378; J0171; J0282; J0461; J1100; J1650; J2185; J2371; J2470; J2543; J2704; J2919; J3010; J3370; J3490; J7030; J7040; J7050; J7070; J7120; P9016; P9045